=== PATIENT | male | born 1940 | race Caucasian/White ===

== ENCOUNTER 2016-08-25 13:26 | Emergency (ER) | payer MEDICARE, OTHER ==
[~2016-08-25] VITALS: Ht 180.3 cm; Wt 89.9 kg
[2016-08-25 13:36] VITALS: BP 121/73
[2016-08-25] MEDS ORDERED: SODIUM CHLORIDE FLUSH 10ML SYR IVF ONE (14:00)
[2016-08-25] MEDS ORDERED: SODIUM CHLORIDE 0.9% 1,000ML IVBOLUS ONE (14:00)
[2016-08-25 15:15] LABS: BLOOD UREA NITROGEN 24 mg/dL (7-18)
[2016-08-25 15:20] LABS: ASPARTATE AMINO TRANSFERASE 8 U/L (15-37)
[2016-08-25] MEDS ORDERED: ONDANSETRON 2MG/ML, 2ML IVPush ONE (15:30)
[2016-08-25] MEDS ORDERED: ONDANSETRON 2MG/ML, 2ML ONE (16:05)
[2016-08-25] MEDS ORDERED: MAGN500T PO (16:47)
[2016-08-25] MEDS ORDERED: GLIP2.5T16 PO (16:47)
[2016-08-25] MEDS ORDERED: PRAM0.25 PO (16:47)
[2016-08-25] MEDS ORDERED: RANI150T8 PO (16:47)
[2016-08-25] MEDS ORDERED: SILD100T PO (16:47)
[2016-08-25] MEDS ORDERED: TAMS-11 PO (16:47)
[2016-08-25] MEDS ORDERED: CARV6.2512 PO (16:47)
[2016-08-25] MEDS ORDERED: ASPI-496 PO (16:47)
[2016-08-25] MEDS ORDERED: ALPH200T2 PO (16:47)
[2016-08-25] MEDS ORDERED: TELM80TA PO (16:47)
[2016-08-25] MEDS ORDERED: CARB1TAB2 PO (16:47)
[2016-08-25] MEDS ORDERED: SITA1TAB5 PO (16:47)
[2016-08-25] MEDS ORDERED: LOVA40TA2 PO (16:47)
== END 2016-08-25 16:48 | disposition home or self-care (01) ==
LOC: ED 16:23
DX: R11.2 Nausea with vomiting, unspecified (principal); R10.30 Lower abdominal pain, unspecified; I10 Essential (primary) hypertension; E11.9 Type 2 diabetes mellitus without complications; F17.200 Nicotine dependence, unspecified, uncomplicated
CPT/HCPCS: 36415; 74022; 80053; 83690; 85025; 96361; 96374; 99285; J2405; J7030

== ENCOUNTER → 2018-04-05 | Outpatient (CLI) | payer MEDICARE, OTHER ==
[~2018-04-05] MED LIST: ALPH200T2 PO; ASPI-496 PO; CARB1TAB2 PO; CARV6.2512 PO; GLIP2.5T16 PO; LOVA40TA2 PO; MAGN500T PO; PRAM0.25 PO; RANI150T23 PO; SILD100T PO; SITA1TAB5 PO; TAMS-11 PO; TELM80TA PO
== END | disposition home or self-care (01) ==
LOC: CVU 12:21
PROVIDERS: ATTEND Surgery
DX: I65.23 Occlusion and stenosis of bilateral carotid arteries (principal); I10 Essential (primary) hypertension; E78.5 Hyperlipidemia, unspecified; Z87.891 Personal history of nicotine dependence; Z86.73 Personal history of transient ischemic attack (TIA), and cerebral infarction without residual deficits
CPT/HCPCS: 93880

== ENCOUNTER 2018-06-21 10:15 | Emergency (ER) | payer MEDICARE, OTHER ==
[~2018-06-21] VITALS: Ht 177.8 cm; Wt 85.0 kg
--- NOTE | 2018-06-21 12:10 | NUR ---
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
[2018-06-21] MEDS ORDERED: SODIUM CHLORIDE FLUSH 10ML SYR IVF ONE (13:00)
[2018-06-21] MEDS ORDERED: HYDROcodone/APAP 5/325 TABLET PO ONE (13:00)
[2018-06-21] MEDS ORDERED: HYDROcodone/APAP 5/325 TABLET ONE (13:17)
[2018-06-21 13:19] LABS: BASOPHILS # (AUTO) 0.06 x10^3/uL (0-0.1); BASOPHILS % (AUTO) 1 % (0-1); EOSINOPHILS % (AUTO) 3 % (1-7); LYMPHOCYTES # (AUTO) 0.64 x10^3/uL (1-3.4); LYMPHOCYTES % (AUTO) 7 % (22-44); MD NO; MEAN CORPUSCULAR HEMOGLOBIN 30.4 pg (27.5-34.5); MEAN CORPUSCULAR HGB CONC 33.3 g/dL (33.2-36.2); MEAN CORPUSCULAR VOLUME 91.4 fL (81-97); MEAN PLATELET VOLUME 8.6 fL (7.4-10.4); MONOCYTES # (AUTO) 0.63 x10^3/uL (0.2-0.8); MONOCYTES % (AUTO) 7 % (2-9); NEUTROPHILS # (AUTO) 7.77 x10^3/uL (1.8-6.8); NEUTROPHILS % (AUTO) 83 % (42-75); PLATELET COUNT 281 x10^3/uL (130-400); RED BLOOD COUNT 3.93 x10^6/uL (4.38-5.82); RED CELL DISTRIBUTION WIDTH 14.3 % (9.4-14.8)
[2018-06-21 14:01] LABS: CHLORIDE 107 mmol/L (98-107)
--- NOTE | 2018-06-21 14:06 | NUR ---
PT RESTING IN BED. PT STATES POSITIVE PAIN RELEIF FROM MEDICATION. PT EXPRESSES NO WANTS OR NEEDS AT THIS TIME.
[2018-06-21 14:09] LABS: ALANINE AMINOTRANSFERASE 7 U/L (12-78); ALBUMIN 2.7 g/dL (3.4-5.0); ALKALINE PHOSPHATASE 83 U/L (45-117); ANION GAP 5 mmol/L (5-15); CALCIUM 8.7 mg/dL (8.5-10.1); CREATININE 1.31 mg/dL (0.7-1.3); TOTAL PROTEIN 6.5 g/dL (6.4-8.2)
--- NOTE | 2018-06-21 14:41 | NUR ---
ASSUMED CARE OF PT. PT TAKEN TO CT SCAN
[2018-06-21] MEDS ORDERED: OMNIPAQUE 350 MG/ML, 100ML BOTTLE ONE (14:57)
--- NOTE | 2018-06-21 15:04 | NUR ---
PT BACK FROM CT SCAN.
[2018-06-21 16:05] LABS: MICROSCOPIC INDICATED
[2018-06-21 16:37] LABS: CULTURE INDICATED? NO
[2018-06-21 16:57] VITALS: BP 165/78
== END 2018-06-21 16:59 | disposition home or self-care (01) ==
LOC: ED 15:58 → UNDOADMIN 15:59 → EDIP 15:59 → ED 16:12
DX: S30.1XXA Contusion of abdominal wall, initial encounter (principal); E11.65 Type 2 diabetes mellitus with hyperglycemia; I10 Essential (primary) hypertension; G20 Parkinson's disease; Z87.891 Personal history of nicotine dependence; X58.XXXA Exposure to other specified factors, initial encounter; Y93.89 Activity, other specified; Y92.89 Other specified places as the place of occurrence of the external cause; Y99.8 Other external cause status
CPT/HCPCS: 36415; 74177; 80053; 81001; 83690; 85025; 93005; 99284; Q9967

== ENCOUNTER → 2018-10-19 | Outpatient (CLI) | payer MEDICARE, OTHER | END | disposition home or self-care (01) | LOC: CFH 12:45 | PROVIDERS: ATTEND Nurse Practitioner Family | DX: I12.9 Hypertensive chronic kidney disease with stage 1 through stage 4 chronic kidney disease, or unspecified chronic kidney disease (principal); E11.22 Type 2 diabetes mellitus with diabetic chronic kidney disease; N18.3 Chronic kidney disease, stage 3 (moderate); R19.7 Diarrhea, unspecified; R63.4 Abnormal weight loss | CPT/HCPCS: 74176 ==

== ENCOUNTER → 2019-04-29 | Outpatient (CLI) | payer MEDICARE, OTHER ==
[~2019-04-29] MED LIST changes: +RANI-467 PO; -RANI150T23 PO
== END | disposition home or self-care (01) ==
LOC: CVU 15:31
PROVIDERS: ATTEND Surgery
DX: I65.23 Occlusion and stenosis of bilateral carotid arteries (principal); I10 Essential (primary) hypertension; E11.9 Type 2 diabetes mellitus without complications; E78.5 Hyperlipidemia, unspecified; Z88.8 Allergy status to other drugs, medicaments and biological substances; Z79.899 Other long term (current) drug therapy; Z87.891 Personal history of nicotine dependence
CPT/HCPCS: 93880

== ENCOUNTER → 2020-04-06 | Outpatient (CLI) | payer MEDICARE, OTHER | END | disposition home or self-care (01) | LOC: STAR 14:36 | PROVIDERS: ATTEND Urology | DX: Z01.818 Encounter for other preprocedural examination (principal); N40.1 Benign prostatic hyperplasia with lower urinary tract symptoms; I25.2 Old myocardial infarction | CPT/HCPCS: 93005 ==